=== PATIENT | female | born 1955 | race Caucasian/White ===

== ENCOUNTER → 2017-03-13 | Outpatient (CLI) | payer OTHER ==
--- NOTE | 2017-03-14 10:53 | MM ---
Reason for exam: screening (asymptomatic). Last mammogram was performed 1 year and 1 month ago. History: Patient is postmenopausal and is nulliparous. Family history of breast cancer in mother at age 60. Benign US left guided mammotome of the left breast, March 28, 2006. Took hormonal contraceptives for 15 years beginning at age 16. Physical Findings: A clinical breast exam by your physician is recommended on an annual basis and results should be correlated with mammographic findings. MG 3D Screening Mammo W/Cad Bilateral CC and MLO view(s) were taken. Prior study comparison: February 25, 2016, bilateral MG screening mammo w CAD. December 29, 2014, bilateral MG screening mammo w CAD. The breast tissue is heterogeneously dense. This may lower the sensitivity of mammography. There is chronic nodularity bilaterally. There is no dominant lesion. No significant changes when compared with prior studies. ASSESSMENT: Negative, BI-RAD 1 RECOMMENDATION: Routine screening mammogram of both breasts in 1 year.
== END | disposition home or self-care (01) ==
LOC: RADMAMWWP 12:47
PROVIDERS: ATTEND Internal Medicine
DX: Z12.31 Encounter for screening mammogram for malignant neoplasm of breast (principal)
CPT/HCPCS: 77063; G0202

== ENCOUNTER → 2017-05-16 | Outpatient (CLI) | payer OTHER ==
--- NOTE | 2017-05-16 14:01 | XR ---
EXAMINATION TYPE: XR chest 2V DATE OF EXAM: 05/16/2017 COMPARISON: NONE HISTORY: Cough for one month. TECHNIQUE: Frontal and lateral views of the chest are obtained. FINDINGS: There is no focal air space opacity, pleural effusion, or pneumothorax seen. The cardiac silhouette size is within normal limits. Dual lead pacemaker is seen. The osseous structures are int act. Cholecystectomy clips are noted. IMPRESSION: No suspicious acute pulmonary process.
== END | disposition home or self-care (01) ==
LOC: RADXRMAIN 13:41
PROVIDERS: ATTEND Internal Medicine
DX: R05 Cough (principal)
CPT/HCPCS: 71020

== ENCOUNTER → 2017-06-08 | Outpatient (CLI) | payer OTHER | END | disposition home or self-care (01) | LOC: LABWHC1 09:00 | PROVIDERS: ATTEND Internal Medicine Interventional Cardiology | DX: E05.90 Thyrotoxicosis, unspecified without thyrotoxic crisis or storm (principal); R00.2 Palpitations | CPT/HCPCS: 36415; 84439; 84443 ==

== ENCOUNTER 2018-02-21 10:01 | Day surgery (SDC) | payer MEDICAID, OTHER ==
[2018-02-15 10:55] VITALS: BMI 32.5
[~2018-02-21 10:01] MED LIST: LACTATED RINGERS 1,000 ML IV SCH
[2018-02-21 10:26] VITALS: RESP 16; TEMP 97.5
[2018-02-21] MEDS ORDERED: LIDOCAINE 1% INJ 10MG/ML (20 ML MDV) ONE (10:41)
[2018-02-21] MEDS ORDERED: PROPOFOL 10 MG/ML 20 ML VIAL IV ONE (10:41)
--- NOTE | 2018-02-21 10:55 | P.PCN ---
Date of Procedure: 02/21/18 Procedure(s) Performed: BRIEF HISTORY: Patient is a 62-year-old, pleasant, female, scheduled for an upper endoscopy as a part of evaluation of chronic cough, intermittent dysphagia to solids for the last few months duration. She has long-standing history of GERD and has been on Prilosec 20 mg daily but recently was changed to Protonix 40 mg before dinner about a week ago.. PROCEDURE PERFORMED: Esophagogastroduodenoscopy. With biopsy PREOPERATIVE DIAGNOSIS: Long-standing history of GERD, intermittent dysphagia to solids, slight chronic cough. IV sedation per anesthesia. PROCEDURE: After informed consent was obtained, the patient was brought into the endoscopy unit. IV sedation was administered by Anesthesia under continuous monitoring. Initially the Olympus GIF-140 video endoscope was inserted into the mouth. Esophagus intubated without any difficulty. It was gradually advanced into the stomach and duodenum and carefully examined. The bulb and the second part of the duodenum appeared normal. The scope at this time was withdrawn to the stomach, adequately insufflated with air, and upon careful examination, mucosa of the antrum, patchy areas of erythema consistent with gastritis and biopsies were done from this area. The body, cardia and the fundus appeared normal. The scope was then withdrawn into the esophagus. The GE junction was located at 30 cm from the incisors. It was slightly narrowed but no impedance to the passage of the scope. Moderate to large size hiatal hernia noted. There were linear erosions and one superficial ulceration in the distal esophagus consistent with LA grade C reflux esophagitis. Rest of the esophagus appeared normal biopsies were done from the distal esophagus and the patient tolerated the procedure well. IMPRESSION: 1. Moderate to large size hiatal hernia. 2. Linear erosions and ulcerations in the distal esophagus consistent with LA grade C reflux esophagitis. 3. Early distal esophageal stricture RECOMMENDATIONS: The findings of this examination were discussed with the patient as was her family. She was advised to increase the Protonix to 40 mg twice daily, half hour before breakfast and dinnertime. Reflux measures. She' ll be seen in the office in 6 weeks..
[2018-02-21 11:38] VITALS: BP 122/78; PULSE 72
== END 2018-02-21 12:00 | disposition home or self-care (01) ==
LOC: ORWHC2ENDO 10:01
PROVIDERS: ATTEND Internal Medicine Gastroenterology
DX: K31.9 Disease of stomach and duodenum, unspecified (principal); K44.9 Diaphragmatic hernia without obstruction or gangrene; K21.0 Gastro-esophageal reflux disease with esophagitis; K22.2 Esophageal obstruction; Z79.899 Other long term (current) drug therapy; Z91.048 Other nonmedicinal substance allergy status; Z95.0 Presence of cardiac pacemaker
CPT/HCPCS: 88305; 43239; J2001; J2704

== ENCOUNTER → 2018-04-11 | Outpatient (CLI) | payer MEDICAID ==
--- NOTE | 2018-04-12 13:11 | MM ---
Reason for exam: screening (asymptomatic). Last mammogram was performed 1 year and 1 month ago. History: Patient is postmenopausal and is nulliparous. Family history of breast cancer in mother at age 60. Benign US left guided mammotome of the left breast, March 28, 2006. Took hormonal contraceptives for 15 years beginning at age 16. Physical Findings: A clinical breast exam by your physician is recommended on an annual basis and results should be correlated with mammographic findings. MG Screening Mammo w CAD Bilateral CC and MLO view(s) were taken. Prior study comparison: March 13, 2017, bilateral MG 3d screening mammo w/cad. February 25, 2016, bilateral MG screening mammo w CAD. The breast tissue is heterogeneously dense. This may lower the sensitivity of mammography. New pleomorphic calcifications lower inner left breast 6.6cm from nipple. ASSESSMENT: Incomplete: need additional imaging evaluation, BI-RAD 0 RECOMMENDATION: Special view mammogram of the left breast. [facility] will attempt to contact patient to return for supplemental views.
== END | disposition home or self-care (01) ==
LOC: RADMAMWWP 11:12
PROVIDERS: ATTEND Internal Medicine
DX: Z12.31 Encounter for screening mammogram for malignant neoplasm of breast (principal)
CPT/HCPCS: 77067

== ENCOUNTER → 2018-04-16 | Outpatient (CLI) | payer MEDICAID ==
--- NOTE | 2018-04-18 07:45 | MM ---
Reason for exam: additional evaluation requested from abnormal screening. Last mammogram was performed less than 1 month ago. History: Patient is postmenopausal and is nulliparous. Family history of breast cancer in paternal aunt at age 80 and breast cancer in mother at age 60. Benign US left guided mammotome of the left breast, March 28, 2006. Took hormonal contraceptives for 15 years beginning at age 16. Physical Findings: Nurse did not find any significant physical abnormalities on exam. MG 3D Work Up W/Cad LT CC with magnification, MLO with magnification, ML with magnification, and ML view(s) were taken of the left breast. Prior study comparison: April 11, 2018, bilateral MG screening mammo w CAD. March 13, 2017, bilateral MG 3d screening mammo w/cad. The breast tissue is heterogeneously dense. This may lower the sensitivity of mammography. There are segmental linear heterogeneous calcifications in the left inner quadrant at middle depth. Biopsy is recommended of the most anterior and posterior margins given the differenced in morphology. ASSESSMENT: Suspicious, BI-RAD 4 RECOMMENDATION: Stereotactic core biopsy of the left breast. (x 2) Called Dr Aguiar with mammographic findings and has scheduled an appointment for the patient for 04/18/18 at 8:[address] Gonzalez. PRELIMINARY REPORT CALLED AND FAXED TO DR. GONZALEZ ON 04/18/18.
== END | disposition home or self-care (01) ==
LOC: RADMAMWWP 13:03
PROVIDERS: ATTEND Internal Medicine
DX: Z12.31 Encounter for screening mammogram for malignant neoplasm of breast (principal)
CPT/HCPCS: 77061; 77065

== ENCOUNTER → 2018-04-18 | Outpatient (CLI) | payer MEDICAID ==
[2018-04-18 08:41] VITALS: BP 113/69; PULSE 67; RESP 16; TEMP 97.8; BMI 32.5
--- NOTE | 2018-04-18 09:25 | P.GSHP ---
History of Present Illness H&P Date: 04/18/18 Chief Complaint: abnormal mammogram left breast The patient is a 62-year-old white female who underwent a a routine mammogram on 1020 [id number] and was noted to have a new pleomorphic calcifications in the lower inner left breast 6.6 cm from the nipple. Upon additional views it was recommended that she have a stereo biopsy of 2 areas in this region. The patient states she does not feel any masses or nodules in her breasts. She has no nipple discharge or skin changes. The patient has not had any history of any trauma or infection of the breast. The patient did have an ultrasound- guided core biopsy of the left breast several years ago this was benign. Family History: 1. Mother: left breast in 60's, skin cancer 2. paternal aunt: breast cancer post-menopausal 3. maternal cousin: breast caner , dx at 45 Hormonal History: menarche: 10 : 2, children: none, abortions 2, menopause: 51 BCP: 16 years hormones: none Surgical History: 1. pacemaker 2. hip replacement 3. gallbladder 4. wrist Medical History: 1. arthritis 2. heart pacemaker for caution if heart stops Social History: smoke: none alcohol: none drugs: none - Constitutional Constitutional: Denies chills, Denies fever - EENT Eyes: denies blurred vision, denies pain Ears: deny: decreased hearing, tinnitus Ears, nose, mouth and throat: Denies headache, Denies sore throat - Breasts Breasts: bilateral: as per HPI - Cardiovascular Cardiovascular: Reports as per HPI - Respiratory Respiratory: Denies cough, Denies 7 - Gastrointestinal Comment: Hiatal hernia, reflux Gastrointestinal: Denies abdominal pain, Denies diarrhea, Denies nausea, Denies vomiting - Genitourinary (Female) Genitourinary: Denies dysuria, Denies hematuria - Menstruation Menstruation: Reports postmenopausal - Musculoskeletal Comment: arthritis - Integumentary Comment: follows with clinical psychologist private practice Integumentary: Reports rash, Denies pruritus - Neurological Comment: torn rotator cuff bilateral causes weakness Neurological: Reports weakness, Denies numbness - Psychiatric Psychiatric: Reports anxiety, Reports depression - Endocrine Endocrine: Denies fatigue, Denies weight change - Hematologic/Lymphatic Comment: aspirin every day - Allergic/Immunologic Allergic/Immunologic: Reports as per HPI Past Medical History Past Medical History: Blood Disorder, GERD/Reflux Additional Past Medical History / Comment(s): prothrombin gene mutation History of Any Multi-Drug Resistant Organisms: None Reported Past Surgical History: Cholecystectomy, Joint Replacement, Orthopedic Surgery, Pacemaker Additional Past Surgical History / Comment(s): pacemaker (Guidant 05/2005), carpal tunnel release 2009 left wrist, ganglio cyst removed on left wrist x2 1987 and 2013, LT total hip replacment 2015, EGD performed in 2017 Past Anesthesia/Blood Transfusion Reactions: Family History of Problems w/ Anesthesia, Motion Sickness Additional Past Anesthesia/Blood Transfusion Reaction / Comment(s): "my two younger sisters...one has a hard time waking up & the other has a hard time going to cleep Type of Cardiac Device: Biventricular Pacemaker Device Placement Date:: 05/2005 Past Psychological History: No Psychological Hx Reported Smoking Status: Never smoker Past Alcohol Use History: None Reported Past Drug Use History: None Reported - Past Family History Mother Family Medical History: Blood Disorder, Cancer, CVA/TIA Additional Family Medical History / Comment(s): cva x2, prothrombin gene mutation, ca:skin basal cell and breast cancer 1989 Father Family Medical History: No Reported History Medications and Allergies Home Medications Medication Instructions Recorded Confirmed Type Cholecalciferol [Vitamin D3] 5,000 unit PO QAM 02/15/18 04/18/18 History Ergocalciferol [Vitamin D2] 50,000 unit PO VILLANUEVA 02/15/18 04/18/18 History Pantoprazole Sodium 40 mg PO BID 02/15/18 04/18/18 History Aspirin [Adult Low Dose Aspirin EC] 81 mg PO QAM 04/18/18 04/18/18 History Calcium Carbonate/Vitamin D3 1 each PO QAM 04/18/18 04/18/18 History [Calcium 600-Vit D3 500 Softgel] Cyanocobalamin (Vitamin B-12) 5,000 mcg PO QAM 04/18/18 04/18/18 History [Vitamin B12] Glucosamine/Chondr Villanueva A Sod [Osteo 1 each PO QAM 04/18/18 04/18/18 History Bi-Flex Caplet] Mirtazapine [Mirtazapine 15 mg PO QAM 04/18/18 04/18/18 History (Soluspan)] Multivitamins, Thera [Multivitamin 1 tab PO QAM 04/18/18 04/18/18 History (formulary)] Allergies Allergy/AdvReac Type Severity Reaction Status Date / Time adhesive Allergy Pardo Verified 04/18/18 08:17 cat dander Allergy Anaphylaxis Verified 04/18/18 08:17 Surgical - Exam Vital Signs Temp Pulse Resp BP Pulse Ox 97.8 F 67 16 113/69 95 04/18/18 08:25 04/18/18 08:25 04/18/18 08:25 04/18/18 08:25 04/18/18 08:25 BMI 32.6 - General well developed, well nourished, no distress - Eyes normal ocular movement - ENT no hearing loss, no congestion - Neck no masses, trachea midline - Respiratory normal respiratory effort, clear to auscultation - Cardiovascular Rhythm: regular Heart Sounds: normal: S1, S2 - Abdomen Abdomen: soft - Integumentary rash on her face - Musculoskeletal limp - Psychiatric oriented to time, oriented to person, oriented to place, speech is normal, memory intact Breast examination: Right breast: Multi-positional exam no dominant masses or nodules of concern Right axilla: No adenopathy of concern Left breast: Multi-positional exam no dominant masses or nodules of concern Left axilla: No adenopathy of concern Results radiograph reviewed Assessment and Plan Assessment: Impression: 1. abnormal mammogram: Pleomorphic calcifications 2 areas I recommended for biopsy in this group 2. arthritis 3. pacemaker Plan 1. stero-biopsy of the left breast, anterior and posterior portion of pleomorphic calcifications to be biopsy 2. Medical management of medical problems 3. Patient to stop aspirin for 1 week prior to biopsy Risks and benefits of the procedure been discussed with the patient. Additionally alternatives such as watchful waiting or biopsy in the operating room were discussed but not recommended. The patient agrees with the biopsy and this will be scheduled in the near future. Cc: Dr. Aguiar
== END | disposition home or self-care (01) ==
LOC: WWCWWP 08:05
PROVIDERS: ATTEND Surgery
DX: Z53.9 Procedure and treatment not carried out, unspecified reason (principal)

== ENCOUNTER → 2018-04-25 | Day surgery (SDC) | payer MEDICAID ==
[2018-04-25 12:44] VITALS: RESP 16; BMI 32.8
--- NOTE | 2018-04-25 14:26 | P.OP ---
Date of Procedure: 04/25/18 Preoperative Diagnosis: Microcalcifications of concern in the left breast in the lower inner area, these are segmental, linear heterogeneous calcifications it was recommended that to portions be sampled the most posterior area and a more anterior area Postoperative Diagnosis: Stereotactic core biopsy of the posterior area of heterogeneous linear calcifications in the left lower inner breast Procedure(s) Performed: Left breast stereotactic core biopsy of posterior lower inner breast calcifications Anesthesia: local Surgeon: Laine Gonzalez Estimated Blood Loss (ml): 0 Pathology: other (breast tissue) Condition: stable Disposition: same day Indications for Procedure: The patient is a 62-year-old white female with radiographic abnormality of the left lower inner breast revealing linear heterogeneous calcifications. On physical examination she has no dominant masses or nodules of concern in either breast nor in her axilla. Risk and benefits of the procedure were discussed with the patient and she wishes to proceed Operative Findings: Microcalcifications in specimen radiograph Description of Procedure: The patient was taken to the stereotactic core biopsy room. She had previously undergone physical examination revealing no dominant masses or nodules of concern in either breast or axilla. The left breast mammogram had revealed linear heterogeneous calcifications in the left inner quadrant at middle depth. Biopsy was recommended at the most anterior and posterior margins. The patient had risks and benefits of the procedure discussed with the patient as well as alternatives and wished to proceed. The patient was positioned on the low rad table. A mixer and scaler film was performed revealing the area of concern. Stereo pair was then obtained. The approach used was a CC from below. The breast was prepped using Betadine. The target was chosen for biopsy. A 9-gauge vacuum-assisted rotating needle was utilized to obtain the specimen. The skin and breast was anesthetized using 1% lidocaine. Approximately 10 mL was utilized. The needle was driven to the correct coordinates and prefire films were obtained. The needle appeared to be in the correct location. The needle was fired. Post fire films were then obtained, the needle appeared to be in the correct location. Approximately 12 core biopsies samples were obtained. The specimen revealed that the area of microcalcifications had been sampled. A secure marked top at marker was placed. This was confirmed to be in the correct location using the stereo appear. There were no immediate postoperative complications. The specimen was sent to pathology. The more anterior calcifications are to be approached next.
--- NOTE | 2018-04-25 14:59 | P.OP ---
Date of Procedure: 04/25/18 Preoperative Diagnosis: Abnormal microcalcifications left breast inferior medial area, anterior position Postoperative Diagnosis: same Procedure(s) Performed: Left breast sterotactic biopsy anterior microcalcifications Anesthesia: local Surgeon: Laine Gonzalez Pathology: other (breast tissue) Condition: stable Disposition: same day Indications for Procedure: The patient is a 62-year-old white female with abnormal microcalcifications in the left breast in the lower inner aspect. It was recommended that the anterior and posterior portion of these calcifications be sampled as they appear to be morphologically different. This is a sampling of the anterior microcalcifications in this grouping. Operative Findings: Microcalcifications of concern in breast tissue Description of Procedure: The patient is a 62-year-old white female who on physical examination did not have any dominant masses or nodules of concern in either breast or in the axilla. She did however have a mammogram showing microcalcifications of concern in the left breast in the lower inner aspect. This was somewhat diffuse and the calcifications were morphologically different in the anterior and posterior groupings. Was recommended she have biopsy sampling of both the anterior and posterior groups. This is a dictation on the anterior group sampling. The risk and benefits of the procedure were discussed with the patient as well as alternatives. The patient opted to undergo stereotactic core biopsy. She was positioned on the low rad table using a medial to lateral approach the anterior portion of microcalcifications were identified. Stereo pair was identified. The calcifications were targeted. The skin was prepped using Betadine. Approximately 10 mL of 1% lidocaine was used to anesthetize the area of concern. Needle was driven to the correct coordinates. Prefire films were obtained. These appeared to be in the correct location the needle was fired and posterior films were then obtained. This was also in the correct location. The needle was a 9-gauge vacuum-assisted rotating biopsy needle. Approximately 12 cores were obtained. Greater Radiograph of the specimen revealed that the area of concern had been obtained. A tri-mariely marker was placed. There were no immediate postop complications. Confirmation of the correct location of the marker was obtained using the stereo pair. The patient is scheduled to follow-up Dr. Mcclure next week. The specimen was sent to pathology.
--- NOTE | 2018-04-25 15:49 | MM ---
EXAMINATION TYPE: MG stereo VAD BX LT DATE OF EXAM: 04/25/2018 COMPARISON: Prior mammogram April 16, 2018 and older studies. CLINICAL HISTORY: Abnormal mammogram TECHNIQUE: Stereotactic guided core biopsy of left breast 2 sites with clip placement. FINDINGS: The procedure of stereotactic guided core biopsy was explained to the patient. Benefits, a lternatives, and risks were discussed. An informed consent was then obtained. The shortness pathway for biopsy was chosen for more posterior calcifications via a inferior approach . More anterior calcifications were sampled via a medial approach due to persistent overlying vessel. I performed the localization, then surgeon, Dr. Gonzalez performed the remainder of the procedure. A vacuum assisted biopsy gun was used to obtain multiple core samples. The patient tolerated the procedure well without any immediate complication. The patient was kept in the radiology department for short stay after the procedure and then discharged home in stable condi tion. Targeted calcifications are identified in specimen mammogram. Post biopsy mammogram shows the biopsy clips to appear in satisfactory position relative to the targeted area of concern on the prep rocedure images. IMPRESSION: SUCCESSFUL, UNCOMPLICATED STEREOTACTIC GUIDED CORE BIOPSY OF 2 AREAS OF CONCERN IN THE LEFT BREAST, F ULL PATHOLOGY RESULTS TO FOLLOW. INTERMEDIATE INDEX OF SUSPICION NOTED AT TIME OF PROCEDURE.
[2018-04-25 16:22] VITALS: BP 139/80; PULSE 77; TEMP 97.9
--- NOTE | 2018-04-26 17:10 | MM ---
EXAMINATION TYPE: MG stereo VAD BX addl LT DATE OF EXAM: 04/25/2018 COMPARISON: 04/16/2018 mammogram CLINICAL HISTORY: Abnormal calcifications TECHNIQUE: Stereotactic guided core biopsy of left breast. FINDINGS: Multiple attempts to localize the calcifications were unsuccessful. Calcifications were localized too posterior for stereotactic access. In discussion with the surgeon, the wire localization will be at tempted. The procedure was terminated prior to skin incision. IMPRESSION: 1. Unsuccessful stereotactic core biopsy. Unable to localize calcifications. Recommendations: 1. Wire localization
== END ==
LOC: RADMAMWWP 11:57
PROVIDERS: ATTEND Surgery
DX: D05.12 Intraductal carcinoma in situ of left breast (principal); N62 Hypertrophy of breast; Z91.048 Other nonmedicinal substance allergy status
CPT/HCPCS: 19081; 19082; A4648; J2001; 88305; 88341; 88342

== ENCOUNTER → 2018-05-02 | Outpatient (CLI) | payer MEDICAID ==
[2018-05-02 09:18] VITALS: BP 142/84; PULSE 74; RESP 18; TEMP 98.6; BMI 32.5
--- NOTE | 2018-05-02 10:19 | P.PN ---
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 She had a area of microcalcification which extended approximately 4-1/2 cm in size. Biopsy of both the anterior and posterior area of the microcalcifications revealed ductal carcinoma in situ. The anterior site also revealed atypical lobular hyperplasia. The patient has no complaints related to the procedure. The area is in the lower inner quadrant of the left breast. Objective - Vital Signs Vital signs: Vital Signs Temp 98.6 F 05/02/18 09:04 Pulse 74 05/02/18 09:04 Resp 18 05/02/18 09:04 BP 142/84 05/02/18 09:04 Pulse Ox 98 05/02/18 09:04 Intake & Output 05/01/18 05/02/18 05/02/18 18:59 06:59 18:59 Weight 86.183 kg - Exam BMI 32.6 - Constitutional General appearance: Present: obese - EENT Eyes: Present: EOMI ENT: Present: hearing grossly normal - Integumentary Integumentary Comment(s): Mild ecchymosis left breast lower inner quadrant area related to surgery to core biopsy Evidence of infection No evidence of hematoma Assessment and Plan Assessment: Impression/plan: 1. 62-year-old white female diagnosed with ductal carcinoma in situ in 2 biopsy sites in the left breast. The area of microcalcifications bands approximately 4-1/2 cm. The patient additionally has some other scattered microcalcifications of some concern. After discussion the patient wishes to have a mastectomy. Her left breast is already smaller than her right breast, and the area which would need to be excised would accentuate this. The patient would prefer to have a skin sparing mastectomy. She is going to see a plastic surgeon regarding reconstruction. The risks and benefits of the procedure including bleeding and infection reaction to the anesthetic have been discussed with the patient. In addition I have discussed sentinel node biopsy with possible axillary node dissection secondary to the large size of the ductal carcinoma in situ I would recommend this be performed. The patient does take baby aspirin and this will be stopped 1 week prior to the procedure. 2. Arthritis 3. Pacemaker Plan: 1. Preoperative clearance with Dr. Shepherd 2. Preoperative clearance with radiology 3. Appointment with plastic surgery Dr. Amos 4. Skin sparing mastectomy of the left breast with sentinel node biopsy possible axillary node dissection 5. Presentation of case at tumor board CC: Dr. Aguiar
== END ==
LOC: WWCWWP 08:43
PROVIDERS: ATTEND Surgery
DX: Z53.9 Procedure and treatment not carried out, unspecified reason (principal)

== ENCOUNTER → 2018-11-14 | Outpatient (CLI) | payer MEDICARE ==
--- NOTE | 2018-11-15 07:27 | BD ---
EXAMINATION TYPE: Axial Bone Density DATE OF EXAM: 11/14/2018 COMPARISON: 11.29.2013 CLINICAL HISTORY: 63 YR OLD FEMALE....ICD-10 CODE: C50.312 Height: 61.6 Weight: 165 FRAX RISK QUESTIONS: Family History (Parent hip fracture): YES RISK FACTORS HISTORY OF: Surgery to LT HIP...THR AT AGE 60 YES OLD Family History of Osteoporosis: YES GRANDMOTHER AND MOTHER, WITH BROKEN HIP Postmenopausal woman: YES AT AGE 48 YRS OLD MEDICATIONS: Additional Medications: HORMONE ALEN, HX OF LT BREAST CANCER, HX OF RADIATION, BP MEDS, VIT D, REF LUX Additional History: LUMPECTOMY LT BREAST, PACEMAKER, EXAM MEASUREMENTS: Bone mineral densitometry was performed using the [employer] System. Bone mineral density as measured about the Lumbar spine is: ----- L1-L4(G/cm2): 1.385 T Score Values are as follows: ----- L1: 0.5 ----- L2: 1.5 ----- L3: 2.3 ----- L4: 1.9 ----- L1-L4: 1.7 Bone mineral density has: Increased 11.3% since study of: 11.29.2013 Bone mineral density about the R hip (g/cm2): 0.895 T Score values are as follows: -----R Neck: -1.6 -----R Total: -0.9 Bone mineral density has: Decreased -9.4% since study of: 11.29.2013 FRAX%s: THERE IS A 16.9% CHANCE FOR A MAJOR OSTEOPOROTIC FX AND A1.1% FOR HIP....PROBABILITY FOR FX IN 10 YRS TIME IMPRESSION: Osteopenia (T Score between -2.5 and -1) at the femoral neck level in the right hip. There is slightly increased risk of fracture and the patient may be considered for treatment. Re-Screen 2-5 years. NOTE: T-SCORE=SD OF THE YOUNG ADULT MEAN.
== END | disposition home or self-care (01) ==
LOC: RADBDWWP 16:13
PROVIDERS: ATTEND Internal Medicine Hematology & Oncology
DX: M85.851 Other specified disorders of bone density and structure, right thigh (principal)
CPT/HCPCS: 77080

== ENCOUNTER → 2019-04-15 | Outpatient (CLI) | payer MEDICARE ==
--- NOTE | 2019-04-15 10:12 | MM ---
Reason for exam: additional evaluation requested from prior study. Last mammogram was performed 1 year ago. History: Patient is postmenopausal, has history of breast cancer at age 62, and is nulliparous. Family history of breast cancer in paternal aunt at age 80 and breast cancer in mother at age 60. Malignant MG stereo VAD BX addl LT of the left breast, April 25, 2018. Malignant MG stereo VAD BX LT of the left breast, April 25, 2018. Lumpectomy of the left breast, June 2016. Benign US left guided mammotome of the left breast, March 28, 2006. Took hormonal contraceptives for 15 years beginning at age 16. Physical Findings: Nurse did not find any significant physical abnormalities on exam. MG 3D Diag Mammo W/Cad RT CC and MLO view(s) were taken of the right breast. Prior study comparison: April 16, 2018, left breast MG 3d work up w/cad LT. April 11, 2018, bilateral MG screening mammo w CAD. The breast tissue is heterogeneously dense. This may lower the sensitivity of mammography. No suspicious abnormality on the right breast. Patient had a recent left mammogram at outside institution, not due. These results were verbally communicated with the patient and result sheet given to the patient on 04/15/19. ASSESSMENT: Negative, BI-RAD 1 RECOMMENDATION: Follow-up diagnostic mammogram of the right breast in 6 months.
== END | disposition home or self-care (01) ==
LOC: RADMAMWWP 08:45
PROVIDERS: ATTEND Radiology Radiation Oncology
DX: D05.12 Intraductal carcinoma in situ of left breast (principal); Z92.3 Personal history of irradiation; Z17.0 Estrogen receptor positive status [ER+]
CPT/HCPCS: 77065; G0279; 77061

== ENCOUNTER → 2019-11-19 | Outpatient (CLI) | payer MEDICARE ==
--- NOTE | 2019-11-20 08:59 | MM ---
Reason for exam: follow-up at short interval from prior study. Last mammogram was performed 7 months ago. History: Patient is postmenopausal, has history of breast cancer at age 62, and is nulliparous. Family history of breast cancer in paternal aunt at age 80, breast cancer in mother at age 60, and breast cancer in maternal cousin. Radiation therapy of the left breast, 2018. Malignant MG stereo VAD BX addl LT of the left breast, April 25, 2018. Malignant MG stereo VAD BX LT of the left breast, April 25, 2018. Lumpectomy of the left breast, June 2016. Benign US left guided mammotome of the left breast, March 28, 2006. Took hormonal contraceptives for 15 years beginning at age 16. Taking antineoplastic for 2 years beginning at age 62. Physical Findings: Nurse did not find any significant physical abnormalities on exam. MG 3D Diag Mammo W/Cad LAKISHA Bilateral CC and MLO view(s) were taken. Prior study comparison: April 15, 2019, right breast MG 3d diag mammo w/cad RT. April 16, 2018, left breast MG 3d work up w/cad LT. The breast tissue is heterogeneously dense. This may lower the sensitivity of mammography. There are excisional changes in the left breast lower inner quadrant posterior middle position. There is no discrete abnormality. Left axillary pacemaker. These results were verbally communicated with the patient and result sheet given to the patient on 11/19/19. ASSESSMENT: Benign, BI-RAD 2 RECOMMENDATION: Follow-up diagnostic mammogram of both breasts in 1 year.
== END | disposition home or self-care (01) ==
LOC: RADMAMWWP 09:39
PROVIDERS: ATTEND Radiology Radiation Oncology
DX: D05.12 Intraductal carcinoma in situ of left breast (principal); Z79.811 Long term (current) use of aromatase inhibitors; Z17.0 Estrogen receptor positive status [ER+]; Z92.3 Personal history of irradiation
CPT/HCPCS: 77066; G0279; 77062

== ENCOUNTER → 2020-04-05 | Outpatient (CLI) | payer MEDICARE ==
[2020-04-05 14:35] LABS: Basophils # (A) 0.1 k/uL (0-0.2); Basophils % (A) 1 %; Eosinophils # (A) 0.1 k/uL (0-0.7); Eosinophils % (A) 2 %; HCT 43.6 % (34.0-46.0); Lymphocytes # (A) 1.7 k/uL (1.0-4.8); Lymphocytes % (A) 29 %; MCH 29.8 pg (25.0-35.0); MCV 93.2 fL (80.0-100.0); Mean Platelet Volume 7.2; Monocytes # (A) 0.4 k/uL (0-1.0); Monocytes % (A) 7 %; Neutrophils # (A) 3.4 k/uL (1.3-7.7); Neutrophils % (A) 58 %; Platelet Count 292 k/uL (150-450); RBC 4.68 m/uL (3.80-5.40); RDW 13.4 % (11.5-15.5); WBC 5.9 k/uL (3.8-10.6)
[2020-04-05 18:51] LABS: Albumin 4.3 g/dL (3.80-4.90); Albumin/Globulin Ratio 1.95 (1.60-3.17); Calcium 9.4 mg/dL (8.7-10.3); Globulin 2.2 g/dL (1.6-3.3); Non-African American GFR(CKD) 76.8 (60.0-200.0); Potassium 4.2 mmol/L (3.5-5.5); Total Bilirubin 0.3 mg/dL (0.2-1.2); Total Protein 6.5 g/dL (6.2-8.2)
[2020-04-05 20:30] LABS: Hepatitis B Core IgM Non-Reactive (Non-Reactive); Hepatitis B Surface AB- Quant 3.5 mIU/mL; Hepatitis B Surface Antibody Non-Reactive (Non-Reactive); Hepatitis B Surface Antigen Non-Reactive (Non-Reactive); Hepatitis C IgG Antibody Non-Reactive (Non-Reactive)
== END | disposition home or self-care (01) ==
LOC: LABWHC1 13:59
PROVIDERS: ATTEND Dermatology
DX: Z51.81 Encounter for therapeutic drug level monitoring (principal); Z79.899 Other long term (current) drug therapy
CPT/HCPCS: 36415; 80053; 85025; 86480; 86705; 86706; 86803; 87340

== ENCOUNTER → 2020-11-30 | Outpatient (CLI) | payer MEDICARE ==
--- NOTE | 2020-12-02 13:29 | MM ---
Reason for exam: additional evaluation requested from prior study. Last mammogram was performed 1 year ago. History: Patient is postmenopausal, has history of breast cancer at age 62, and is nulliparous. Family history of breast cancer in paternal aunt at age 80, breast cancer in mother at age 60, and breast cancer in maternal cousin at age 34. Radiation therapy of the left breast, 2019. Malignant MG stereo VAD BX addl LT of the left breast, April 25, 2018. Malignant MG stereo VAD BX LT of the left breast, April 25, 2018. Lumpectomy of the left breast, June 2016. Benign US left guided mammotome of the left breast, March 28, 2006. Took hormonal contraceptives for 15 years beginning at age 16. Taking antineoplastic for 2 years beginning at age 62. Physical Findings: Nurse did not find any significant physical abnormalities on exam. MG 3D Diag Mammo W/Cad LAKISHA Bilateral CC and MLO view(s) were taken. Prior study comparison: November 19, 2019, bilateral MG 3d diag mammo w/cad LAKISHA. April 15, 2019, right breast MG 3d diag mammo w/cad RT. There are scattered fibroglandular densities. Left pacemaker. Left post operative changes. These results were verbally communicated with the patient and result sheet given to the patient on 11/30/20. ASSESSMENT: Benign, BI-RAD 2 RECOMMENDATION: Follow-up diagnostic mammogram of both breasts in 1 year.
== END | disposition home or self-care (01) ==
LOC: RADMAMWWP 12:59
PROVIDERS: ATTEND Radiology Radiation Oncology
DX: N64.89 Other specified disorders of breast (principal); Z78.0 Asymptomatic menopausal state; Z85.3 Personal history of malignant neoplasm of breast; Z80.3 Family history of malignant neoplasm of breast
CPT/HCPCS: 77066; G0279; 77062

== ENCOUNTER 2020-12-01 07:42 | Day surgery (SDC) | payer MEDICARE ==
[2020-11-29 12:08] VITALS: BMI 33.5
[~2020-12-01 07:42] MED LIST changes: -LACTATED RINGERS 1,000 ML IV SCH; +SODIUM CHLORIDE 0.9% 1,000 ML IV SCH; +ceFAZolin 1 GM in SODIUM CHLORIDE 0.9% 250 ML IRRIGATION PRN
[2020-12-01] MEDS ORDERED: SODIUM CHLORIDE 0.9% 1,000 ML IV ONE (07:50)
[2020-12-01 08:06] VITALS: RESP 16; TEMP 97.8
[2020-12-01] MEDS ORDERED: LIDOCAINE 1% INJ 10MG/ML (20 ML MDV) ONE (08:34)
[2020-12-01] MEDS ORDERED: MIDAZOLAM 2 MG/2 ML VIAL IV ONE (08:41)
[2020-12-01] MEDS ORDERED: LIDOCAINE 1% INJ 10MG/ML (20 ML MDV) SQ ONE (08:49)
[2020-12-01] MEDS ORDERED: CEPHALEXIN 500 MG CAP PO STA (10:32)
--- NOTE | 2020-12-01 11:22 | CE ---
CARDIAC ELECTROPHYSIOLOGY REPORT DATE OF SERVICE: 12/01/2020 PROCEDURE: 1. Explantation of old pulse generator. 2. Implantation of new pulse generator using the old atrial and ventricular leads. PERFORMED BY: Dr. Pepe Plasencia. ANESTHESIA: Moderate conscious sedation time was 64 minutes. Patient was administered Versed. Oxygen saturation, hemodynamics and EKG were monitored closely. CLINICAL INFORMATION: Mrs. Michelle Zuleta is a 65-year-old lady with a history of malignant syncope, had a permanent pacemaker placed in May. The pulse generator has reached end of life and therefore she was asked to come in for a pulse generator change after due discussion regarding the rationale, risks, benefits, and options. DEVICE INFORMATION: Explanted device: [employer] model 1291, serial #[id number], model is Insignia 1 Ultra. New implanted device: Paint Crew Supervisor is [employer] model Assurity MRI 2272 serial number [id number]. Atrial lead [employer] model 4086, serial number [id number]. The ventricular lead, [employer] tool and die machinist model 4088, serial number [id number]. Atrial threshold 0.75 V at 0.4 milliseconds. P waves 0.8 mV, lead impedance 390 ohms. Some P waves were up to 1.5. Ventricular threshold 1.25 V at 0.4 milliseconds. R- waves 2.7-3.2, lead impedance 400 ohms. Pacemaker settings in DDD mode, lower rate 50, high rate 110, paced AV delay 275 milliseconds. Sensed AV delay 250 milliseconds. PROCEDURE NOTE: Under strict aseptic precautions and local anesthesia, a linear incision was made over the previously existing pulse generator. Blunt dissection and cautery were used to the open the pocket and the old pulse generator was explanted. The leads were taken out using the available screwdriver. The atrial and ventricular leads were taken out, cleaned and dried up and the new pulse generator was then used to attach the old leads to. Atrial lead was screwed in securely and ventricular lead was also screwed in securely. The new pulse generator was placed in the pocket. The pocket was irrigated with antibiotic solution. The pulse generator was viewed under fluoroscopy and appeared to have a good slack and the lead position was very good. Lead numbers were again checked through the device. The pacemaker pocket was closed in 2 layers with a 2.0 Vicryl suture as a first layer and the subcutaneous layer was 3.0 Vicryl. Excellent hemostasis and good apposition were achieved. Patient received antibiotic infusion with 2 grams of Kefzol as I began the procedure. The details were discussed with the patient and family. She will be discharged in the next couple of hours and will be on Keflex 500 mg t.i.d. for a total of 12 doses. I will see her in the office in 1 week. The patient tolerated the procedure well without complication. MMODL / IJN: [id number] /
[2020-12-01 15:48] VITALS: PULSE 76
[2020-12-01 15:54] VITALS: BP 128/69
== END 2020-12-01 12:50 | disposition home or self-care (01) ==
LOC: CATHEP 07:42
PROVIDERS: ATTEND Internal Medicine Interventional Cardiology
DX: Z45.010 Encounter for checking and testing of cardiac pacemaker pulse generator [battery] (principal); I49.5 Sick sinus syndrome; R55 Syncope and collapse; I10 Essential (primary) hypertension; Z20.822 Contact with and (suspected) exposure to COVID-19; I47.1 Supraventricular tachycardia; Z91.09 Other allergy status, other than to drugs and biological substances; Z79.899 Other long term (current) drug therapy
CPT/HCPCS: 33228; 87635; C1785; J2250; J0690; J2001

== ENCOUNTER → 2021-02-14 | Outpatient (CLI) | payer MEDICARE ==
--- NOTE | 2021-02-15 17:30 | BD ---
EXAMINATION TYPE: Axial Bone Density DATE OF EXAM: 02/14/2021 COMPARISON: 11/14/2018 CLINICAL HISTORY: Height: 61.5 IN Weight: 200 LBS RISK FACTORS HISTORY OF: Surgery to Hip(left): 2016 Family History of Osteoporosis: YES GRANDMOTHER,MOTHER Active: YES Diet low in dairy products/other sources of calcium: YES Postmenopausal woman: AGE 48 MEDICATIONS: Additional Medications: CALCIUM, VIT D, LETRIZOLE, OSTEO-BIFLEX, METROPROLOL, OMEPRAZOLE Additional History: BREAST CANCER WITH RADIATION EXAM MEASUREMENTS: Bone mineral densitometry was performed using the [employer] System. Bone mineral density as measured about the Lumbar spine is: ----- L1-L4(G/cm2): 1.238 T Score Values are as follows: ----- L2: 0.6 ----- L3: 0.5 ----- L4: 1.0 ----- L1-L4: 0.5 Bone mineral density has: Decreased -10.3% since study of: 11/14/2018 Bone mineral density about the R hip (g/cm2): 0.741 T Score values are as follows: -----R Neck: -2.1 -----R Total: -1.1 Bone mineral density has: Decreased -3.2% since study of: 11/14/2018 IMPRESSION: Osteopenia (T Score between -2.5 and -1). There is slightly increased risk of fracture and the patient may be considered for treatment. Re-Screen 2-5 years. NOTE: T-SCORE=SD OF THE YOUNG ADULT MEAN.
== END | disposition home or self-care (01) ==
LOC: RADBDWWP 14:58
PROVIDERS: ATTEND Internal Medicine Hematology & Oncology
DX: C50.312 Malignant neoplasm of lower-inner quadrant of left female breast (principal); M85.80 Other specified disorders of bone density and structure, unspecified site; Z79.890 Hormone replacement therapy
CPT/HCPCS: 77080

== ENCOUNTER → 2021-03-23 | Outpatient (CLI) | payer MEDICARE ==
[2021-03-23 16:11] LABS: Basophils # (A) 0.09 X 10*3/uL (0.00-0.10); Basophils % (A) 1.7 %; Eosinophils # (A) 0.16 X 10*3/uL (0.04-0.35); HGB 13.5 g/dL (12.0-15.0); Lymphocytes # (A) 1.85 X 10*3/uL (0.90-5.00); Lymphocytes % (A) 34.5 %; MCH 28.8 pg (27.0-32.0); MCHC 30.7 g/dL (32.0-37.0); Mean Platelet Volume 10.4 fL (9.5-12.2); Monocytes # (A) 0.57 X 10*3/uL (0.20-1.00); Monocytes % (A) 10.6 %; Neutrophils # (A) 2.68 X 10*3/uL (1.80-7.70); Platelet Count 326 X 10*3/uL (140-440); RBC 4.68 X 10*6/uL (4.10-5.20); RDW 13.8 % (11.5-14.5); WBC 5.36 X 10*3/uL (4.50-10.00)
[2021-03-23 19:02] LABS: ALT 30 U/L (8-44); AST 24 U/L (13-35)
== END | disposition home or self-care (01) ==
LOC: LABWHC1 09:38
PROVIDERS: ATTEND Nurse Practitioner Family
DX: L30.9 Dermatitis, unspecified (principal)
CPT/HCPCS: 36415; 84450; 84460; 85025; 86480

== ENCOUNTER → 2021-12-01 | Outpatient (CLI) | payer MEDICARE ==
--- NOTE | 2021-12-01 12:00 | MM ---
Reason for Exam: Additional evaluation requested from prior study. Last screening mammogram was performed 12 month(s) ago. Patient History: Menarche at age 10. Patient has no children. Postmenopausal. Breast cancer, left, age 62. Hormonal Contraceptives for 15 years from age 16 until age 31. 06/2016, Lumpectomy on the Left side. 04/25/2018, Malignant Core Biopsy on the left side. 04/25/2018, Malignant Core Biopsy on the left side. 03/28/2006, Benign Core Biopsy on the left side. 2019, Radiation Therapy on the left side. Maternal cousin had breast cancer, age 34. Paternal aunt had breast cancer, age 80. Mother had breast cancer, age 60. Tissue Density: There are scattered fibroglandular densities. Findings: Analyzed By CAD. Pacemaker generator projects over the left chest wall. Postsurgical and posttreatment change posterior medial inferior left breast. A few benign round calcifications are present here as well as an oral cyst calcification, unchanged from prior. Microclip anterior left breast from prior biopsy. No significant change from prior exams. Overall Assessment: Benign, BI-RAD 2 Management: Diagnostic Mammogram of both breasts in 1 year. A clinical breast exam by your physician is recommended on an annual basis and results should be correlated with mammographic findings. This exam should not preclude additional follow-up of suspicious palpable abnormalities. Results were given to the patient verbally at the time of exam. Electronically signed and approved by: Jeronimo Ferraro M.D. Radiologist
== END | disposition home or self-care (01) ==
LOC: RADMAMWWP 11:07
PROVIDERS: ATTEND Radiology Radiation Oncology
DX: Z08 Encounter for follow-up examination after completed treatment for malignant neoplasm (principal); D05.12 Intraductal carcinoma in situ of left breast; Z86.000 Personal history of in-situ neoplasm of breast; Z79.811 Long term (current) use of aromatase inhibitors; Z92.3 Personal history of irradiation; Z17.0 Estrogen receptor positive status [ER+]
CPT/HCPCS: 77066; G0279; 77062

== ENCOUNTER → 2022-12-04 | Outpatient (CLI) | payer MEDICARE ==
--- NOTE | 2022-12-04 13:36 | MM ---
Reason for Exam: Additional evaluation requested from prior study. Last screening mammogram was performed 12 month(s) ago. Indicated Problems: Pain of the left side (Global) for 2 Year(s) : pt has had lt lat breast pain 2+ years . dr maier. Patient History: Menarche at age 10. Patient has no children. Postmenopausal. Breast cancer, left, age 62. Hormonal Contraceptives for 15 years from age 16 until age 31. 06/2016, Lumpectomy on the Left side. 04/25/2018, Malignant Core Biopsy on the left side. 04/25/2018, Malignant Core Biopsy on the left side. 03/28/2006, Benign Core Biopsy on the left side. 2018, Radiation Therapy on the left side. Maternal cousin had breast cancer, age 34. Paternal aunt had breast cancer, age 80. Mother had breast cancer, age 60. Prior Study Comparison: 10/11/2012 Bilateral Screening Mammogram, [facility]. 12/29/2014 Bilateral Screening Mammogram, [facility]. 03/13/2017 Bilateral Screening Mammogram, [facility]. 04/11/2018 Bilateral Screening Mammogram, [facility]. 04/16/2018 Left Diagnostic Mammogram, [facility]. 04/15/2019 Right Diagnostic Mammogram, [facility]. 11/19/2019 Bilateral Diagnostic Mammogram, [facility]. 11/30/2020 Bilateral Diagnostic Mammogram, [facility]. 12/01/2021 Bilateral MG 3D diag mammo w/cad LAKISHA, [facility]. Tissue Density: There are scattered fibroglandular densities. Findings: Analyzed By CAD. Left breast posttreatment changes. Pacemaker visualized. No new suspicious masses, calcifications or distortions. Overall Assessment: Benign, BI-RAD 2 Management: Screening Mammogram of both breasts in 1 year. Results were given to the patient verbally at the time of exam. Patient should continue monthly self-breast exams. A clinical breast exam by your physician is recommended on an annual basis. This exam should not preclude additional follow-up of suspicious palpable abnormalities. Note on Tigist scores and lifetime risk: 1. A Tigist score greater than 3% is considered moderate risk. If this is the case, consider specialist referral to assess eligibility for a risk reducing agent. 2. If overall lifetime risk for the development of breast cancer is 20% or higher, the patient may qualify for future screening with alternating mammogram and breast MRI. Electronically signed and approved by: Alonso Vidal DO
== END | disposition home or self-care (01) ==
LOC: RADMAMWWP 12:59
PROVIDERS: ATTEND Radiology Radiation Oncology
DX: Z08 Encounter for follow-up examination after completed treatment for malignant neoplasm (principal); D05.12 Intraductal carcinoma in situ of left breast; Z78.0 Asymptomatic menopausal state; Z86.000 Personal history of in-situ neoplasm of breast; Z92.3 Personal history of irradiation; Z17.0 Estrogen receptor positive status [ER+]; Z79.811 Long term (current) use of aromatase inhibitors; Z80.3 Family history of malignant neoplasm of breast
CPT/HCPCS: 77066; G0279; 77062

== ENCOUNTER → 2023-04-04 | Outpatient (CLI) | payer MEDICARE | END | disposition home or self-care (01) | LOC: LABWHC1 12:58 | PROVIDERS: ATTEND Nurse Practitioner Family | DX: L40.0 Psoriasis vulgaris (principal); L28.1 Prurigo nodularis; Z79.899 Other long term (current) drug therapy | CPT/HCPCS: 36415; 86480 ==

== ENCOUNTER → 2023-04-04 | Outpatient (CLI) | payer MEDICARE ==
--- NOTE | 2023-04-04 16:20 | BD ---
EXAMINATION TYPE: Axial Bone Density DATE OF EXAM: 04/04/2023 CLINICAL HISTORY: 67 years old Female. ICD-10 CODE: C50.312 breast ca Height: 5 ft 1 1/2 in Weight: 200 FRAX RISK QUESTIONS: Alcohol (3 or more units per day): no Family History (Parent hip fracture): no Glucocorticoids (More than 3mos): no (Ex: prednisone, prednisolone, methylprednisolone, dexamethasone, and hydrocortisone). History of Fracture in Adulthood: no Secondary Osteoporosis: 1. Type 1 Diabetes: no 2. Hyperthyroidism: no 3. Menopause before 45: no 4. Malnutrition: no 5. Chronic liver disease: no Rheumatoid Arthritis: no Current Tobacco Use: no RISK FACTORS HISTORY OF: Surgery to Spine/Hip(right/left)/Wrist (right/left): left hip replacement When: 2016 Family History of Osteoporosis: yes Active: yes Diet low in dairy products/other sources of calcium: no Postmenopausal woman: yes Take estrogen and/or progesterone medications: no Lost more than 2 inches in height since high school: no Frequent falls: no Poor Health: good Hyperparathyroidism: no Adrenal Insufficiency: no MEDICATIONS: Additional Medications: estrogen antonio , omeprazole, metoprolol, Additional History: breast cancer 2018 radiation EXAM MEASUREMENTS: Bone mineral densitometry was performed using the [employer]. Bone mineral density as measured about the Lumbar spine is: ----- L1-L4(G/cm2): 1.284 T Score Values are as follows: ----- L1: 0.1 ----- L2: 1.5 ----- L3: 1.3 ----- L4: 0.5 ----- L1-L4: 0.9 Z Score Values are as follows: ----- L1: 0.9 ----- L2: 2.3 ----- L3: 2.1 ----- L4: 1.3 ----- L1-L4: 1.7 Bone mineral density has: increased 3.7 % since study of: 2020 Bone mineral density about the R hip (g/cm2): 0.786 T Score values are as follows: -----R Neck: -1.8 -----R Total: -1.1 Z Score values are as follows: -----R Neck: -0.7 -----R Total: -0.3 Bone mineral density has: increased 0.1 % since study of: 2020 FRAX%s: The graph provided illustrates a 15.9 % chance for a major osteoporotic fx and a 3.3 % chance for the hips probability for fx in 10 years time. IMPRESSION: Osteopenia (T Score between -2.5 and -1). There is slightly increased risk of fracture and the patient may be considered for treatment. Re-Screen 2-5 years. NOTE: T-SCORE=SD OF THE YOUNG ADULT MEAN.
== END | disposition home or self-care (01) ==
LOC: RADBDWWP 12:56
PROVIDERS: ATTEND Internal Medicine Hematology & Oncology
DX: M85.851 Other specified disorders of bone density and structure, right thigh (principal); C50.312 Malignant neoplasm of lower-inner quadrant of left female breast; Z71.3 Dietary counseling and surveillance
CPT/HCPCS: 77080

== ENCOUNTER → 2023-06-13 | Outpatient (CLI) | payer MEDICARE ==
--- NOTE | 2023-06-14 09:09 | XR ---
EXAMINATION TYPE: XR chest 2V DATE OF EXAM: 06/13/2023 1:41 PM CLINICAL INDICATION:Female, 67 years old with history of R05.9 cough; COMPARISON: Chest radiographs from 05/16/2017 TECHNIQUE: XR chest 2V Frontal and lateral views of the chest. FINDINGS: Lungs/Pleura: There is no evidence of pleural effusion, focal consolidation, or pneumothorax. Pulmonary vascularity: Unremarkable. Heart/mediastinum: Cardiomediastinal silhouette is unremarkable. Two lead cardiac conduction device o verlying the left hemithorax with lead tips projecting over the right ventricle and right atrium. Musculoskeletal: No acute osseous pathology. Other findings: None IMPRESSION: No acute cardiopulmonary disease/process.
== END | disposition home or self-care (01) ==
LOC: RADXRMAIN 13:30
PROVIDERS: ATTEND Internal Medicine
DX: R05.9 Cough, unspecified (principal)
CPT/HCPCS: 71046

== ENCOUNTER → 2023-12-06 | Outpatient (CLI) | payer MEDICARE ==
--- NOTE | 2023-12-06 10:46 | MM ---
Reason for Exam: Hx of breast cancer, conservation therapy. Last screening mammogram was performed 12 month(s) ago. Patient History: Menarche at age 10. Patient has no children. Postmenopausal. Breast cancer, left, age 62. Hormonal Contraceptives for 15 years from age 16 until age 31. 06/2016, Lumpectomy on the Left side. 04/25/2018, Malignant Core Biopsy on the left side. 04/25/2018, Malignant Core Biopsy on the left side. 03/28/2006, Benign Core Biopsy on the left side. 2019, Radiation Therapy on the left side. Maternal cousin had breast cancer, age 34. Paternal aunt had breast cancer, age 80. Mother had breast cancer, age 60. Tissue Density: The breasts are heterogeneously dense, which may obscure small masses. Findings: Analyzed By CAD. Deformity left breast from prior lumpectomy and radiation therapy. No evidence for recurrent or residual mass. No mass right breast. No suspicious microcalcifications. Overall Assessment: Benign, BI-RAD 2 Management: Diagnostic Mammogram of both breasts in 1 year. . Results were given to the patient verbally at the time of exam. Patient should continue monthly self-breast exams. A clinical breast exam by your physician is recommended on an annual basis. This exam should not preclude additional follow-up of suspicious palpable abnormalities. Note on Tigist scores and lifetime risk: 1. A Tigist score greater than 3% is considered moderate risk. If this is the case, consider specialist referral to assess eligibility for a risk reducing agent. 2. If overall lifetime risk for the development of breast cancer is 20% or higher, the patient may qualify for future screening with alternating mammogram and breast MRI. Electronically signed and approved by: Mario Lane M.D. Radiologis
== END | disposition home or self-care (01) ==
LOC: RADMAMWWP 10:20
PROVIDERS: ATTEND Radiology Radiation Oncology
DX: Z08 Encounter for follow-up examination after completed treatment for malignant neoplasm (principal); D05.12 Intraductal carcinoma in situ of left breast; Z86.000 Personal history of in-situ neoplasm of breast; Z92.3 Personal history of irradiation; Z79.811 Long term (current) use of aromatase inhibitors; Z17.0 Estrogen receptor positive status [ER+]; Z78.0 Asymptomatic menopausal state; Z85.3 Personal history of malignant neoplasm of breast
CPT/HCPCS: 77066; G0279; 77062

== ENCOUNTER → 2024-02-29 | Outpatient (CLI) | payer MEDICARE ==
--- NOTE | 2024-02-29 10:38 | CT ---
EXAMINATION TYPE: CT ankle LT wo con CT DLP: 275 mGycm, Automated exposure control for dose reduction was used. DATE OF EXAM: 02/29/2024 9:58 AM COMPARISON: CT 09/16/2015, CLINICAL INDICATION: Female, 68 years old with history of Left ankle; S82.855A NONDISPLACED TRIMALLEO LAR FRA; [facility], Fell off porch, left ankle trimalleolar fx. TECHNIQUE: Axial images were obtained of the CT ankle LT wo con, Additional coronal and sagittal refo rmatted images and soft tissue and bone window were obtained for review. Contrast used: mL of , (None if empty) Oral contrast used: (None if empty) FINDINGS: Soft tissue edema throughout the lower extremity. There is distal fibula spiral fracture. T he tibial plafond and is intact. Multifocal degeneration changes throughout the joints of the foot wi th osteophyte formation and joint space narrowing. IMPRESSION: Spiral fracture distal fibula. The tibia is intact. There is associated edema.
== END | disposition home or self-care (01) ==
LOC: RADCTMAIN 09:35
PROVIDERS: ATTEND Podiatrist
DX: S82.855A Nondisplaced trimalleolar fracture of left lower leg, initial encounter for closed fracture

== ENCOUNTER → 2024-04-14 | Outpatient (CLI) | payer MEDICARE ==
[2024-04-14 15:26] LABS: Basophils % (A) 1.7 %; Eosinophils # (A) 0.14 X 10*3/uL (0.04-0.35); Eosinophils % (A) 2.3 %; HCT 42.7 % (37.2-46.3); HGB 13.5 g/dL (12.0-15.0); Lymphocytes # (A) 1.87 X 10*3/uL (0.90-5.00); Lymphocytes % (A) 31.2 %; MCH 29.7 pg (27.0-32.0); MCHC 31.6 g/dL (32.0-37.0); MCV 93.8 FL (80.0-97.0); Mean Platelet Volume 10.2 FL (9.5-12.2); Monocytes # (A) 0.62 X 10*3/uL (0.20-1.00); Monocytes % (A) 10.3 %; NRBC Per 100 WBC 0 X 10*3/uL (0.00-0.01); Neutrophils # (A) 3.25 X 10*3/uL (1.80-7.70); Neutrophils % (A) 54.2 %; Platelet Count 324 X 10*3/uL (140-440); RBC 4.55 X 10*6/uL (4.10-5.20); RDW 14.2 % (11.5-14.5)
[2024-04-14 16:54] LABS: ALT 21 U/L (8-44); AST 20 U/L (13-35); Albumin 4.2 g/dL (3.8-4.9); Albumin/Globulin Ratio 1.83 Ratio (1.60-3.17); Alkaline Phosphatase 78 U/L (41-126); BUN/Creat Ratio 15.25 Ratio (12.00-20.00); Blood Urea Nitrogen 12.2 mg/dL (9.0-27.0); Calcium 9.4 mg/dL (8.7-10.3); Carbon Dioxide 26.9 mmol/L (21.6-31.8); Chloride 106 mmol/L (96-109); Chol/HDL Ratio 3.13 Ratio; Globulin 2.3 g/dL (1.6-3.3); Glucose 96 mg/dL (70-110); LDL Cholesterol,Calculated 94.8 mg/dL (0.0-131.0); Potassium 4.7 mmol/L (3.5-5.5); Sodium 142 mmol/L (135-145); Total Bilirubin 0.4 mg/dL (0.3-1.2); Total Protein 6.5 g/dL (6.2-8.2); VLDL Calculation 19.58 mg/dL (5.00-40.00)
== END | disposition home or self-care (01) ==
LOC: LABWHC1 11:08
PROVIDERS: ATTEND Internal Medicine
CPT/HCPCS: 36415; 80053; 80061; 82306; 84443; 85025; 86480

== ENCOUNTER → 2024-06-05 | Outpatient (CLI) | payer MEDICARE ==
--- NOTE | 2024-06-05 15:58 | US ---
EXAMINATION TYPE: US venous doppler duplex LE LT DATE OF EXAM: 06/05/2024 3:01 PM COMPARISON: NONE CLINICAL INDICATION: Female, 68 years old with history of M79.662 PAIN IN LEFT LOWER LEG; Pt broke le ft ankle back in Feb., she has been experiencing pain ever since, got worst last night with severe s welling in left lower calf with redness and warm to touch, Pain TECHNIQUE: The lower extremity deep venous system is examined utilizing real time linear array sonog andre with graded compression, color doppler sonography, and spectral doppler. SIDE PERFORMED: Left FINDINGS: VESSELS IMAGED: Common Femoral Vein Deep Femoral Vein Greater Saphenous Vein * Femoral Vein Popliteal Vein Small Saphenous Vein * Proximal Calf Veins (* superficial vessels) Left Leg: Negative for DVT, Color Doppler imaging shows patency of the vessels. Spectral waveforms a re within normal limits. IMPRESSION: No ultrasound evidence for deep venous thrombosis. [facility], Workstation: [facility], 06/05/2024 3:55 PM
== END | disposition home or self-care (01) ==
LOC: RADUSWWP 14:29
PROVIDERS: ATTEND Internal Medicine
DX: M79.662 Pain in left lower leg (principal)